=== PATIENT | female | born 1950 | race Caucasian/White ===

== ENCOUNTER 2023-07-11 13:39 | Emergency (ER) | payer MEDICARE, MEDICAID ==
[~2023-07-11] VITALS: Ht 165.1 cm; Wt 71.3 kg
[2023-07-11 14:42] LABS: BILIRUBIN,URINE NEGATIVE (Neg); CLARITY,URINE CLEAR (Clear); GLUCOSE, URINE 500 mg/dl (Neg); KETONES,URINE NEGATIVE (Neg); LEUKOCYTE ESTERASE ,URINE NEGATIVE (Neg); NITRITES, URINE NEGATIVE (Neg); OCCULT BLOOD,URINE NEGATIVE (Neg); PROTEIN,URINE NEGATIVE (Neg); UROBILINOGEN,URINE 0.2 E.U/dL (0.2-1.0)
[2023-07-11 14:45] LABS: COLOR,URINE STRAW (Yellow); UA COLLECTION TYPE CLN CATCH MIDSTREAM
[2023-07-11 15:15] LABS: BASOPHILS % (AUTO) 0.7 % (0-1); EOSINOPHILS # (AUTO) 0.2 X10'3 (0-0.9); EOSINOPHILS % (AUTO) 3.1 % (0-6); HEMATOCRIT 37.1 % (35.0-45.0); HEMOGLOBIN 12.2 g/dl (12.0-16.0); LYMPHOCYTES # (AUTO) 1.5 X10'3 (1.1-4.8); LYMPHOCYTES % (AUTO) 20.2 % (21-51); MEAN CORPUSCULAR HEMOGLOBIN 30.8 PG (27.0-31.0); MEAN CORPUSCULAR VOLUME 93.3 FL (78-98); MEAN PLATELET VOLUME 9.6 FL (7.4-10.4); MONOCYTES # (AUTO) 0.4 X10'3 (0-0.9); MONOCYTES % (AUTO) 5.6 % (2-12); NEUTROPHILS # (AUTO) 5.1 X10'3 (1.8-7.7); NEUTROPHILS % (AUTO) 70.4 % (42-75); PLATELET COUNT 223 X10'3 (140-440); RED BLOOD COUNT 3.98 X10'6 (4.20-5.60); RED CELL DISTRIBUTION WIDTH 13.1 % (11.5-14.5); WHITE BLOOD COUNT 7.3 X10'3 (4.5-11.0)
[2023-07-11 15:32] LABS: ALANINE AMINOTRANSFERASE 23 U/L (12-78); ALBUMIN 3.7 G/DL (3.4-5.0); ALKALINE PHOSPHATASE 70 IU/L (46-116); ANION GAP 9 (8-16); ASPARTATE AMINO TRANSFERASE 19 U/L (10-37); BILIRUBIN,TOTAL 0.6 MG/DL (0.1-1.0); BLOOD UREA NITROGEN 16 MG/DL (7-18); BUN/CREATININE RATIO 15.7 (10.0-20.0); CALCIUM 9.5 MG/DL (8.5-10.1); CHLORIDE 102 MMOL/L (99-107); CREATININE 1.02 MG/DL (0.40-0.90); GLUCOSE 164 MG/DL (70-104); LIPASE 11 U/L (16-77); POTASSIUM 4.3 MMOL/L (3.5-5.1); SODIUM 138 MMOL/L (135-145); TOTAL CARBON DIOXIDE 26.6 MMOL/L (24-32); TOTAL PROTEIN 7.3 G/DL (6.4-8.2); eCRCL 43 ML/MIN; eGFR 53 ML/MIN
[2023-07-11] MEDS ORDERED: METR-159 PO (18:02)
[2023-07-11 18:38] VITALS: BP 150/64; PULSE 93; RESP 16; TEMP 98.4; O2SAT 98
[2023-07-12 09:52] LABS: C DIFF ANTIGEN NEGATIVE (NEGATIVE); C DIFF SPECIMEN=DIARRHEA? ACCEPTABLE; C DIFFICILE TOXINS A&B NEGATIVE (Neg)
== END 2023-07-11 18:41 | disposition home or self-care (01) ==
LOC: ER 13:40
DX: R10.30 Lower abdominal pain, unspecified (principal); R19.7 Diarrhea, unspecified
CPT/HCPCS: 36415; 80053; 81003; 83690; 85025; 87324; 87449; 99283

== ENCOUNTER → 2024-12-17 | Outpatient (CLI) | payer MEDICARE, MEDICAID ==
--- NOTE | 2024-12-21 10:09 | CONSULTATION ---
DATE OF CONSULTATION: 12/17/2024 DICTATING PHYSICIAN: Gabrielle Neal M.S., [facility]-MANAGER [employer] MODIFIED BARIUM SWALLOW STUDY REPORT REFERRING PHYSICIAN: Tisha Hall MD HISTORY OF PRESENT ILLNESS: The patient is a 74-year-old female and consents to this evaluation. In history obtained from the patient and medical records, the patient reports symptoms of dysphagia including feeling as if something stays in her throat and gets caught in her throat when she is eating. She notes that the items that feel caught in her throat include crumbly food items, sunflower seeds, nuts, and some of her medications. This results in coughing and then sometimes vomiting. She thinks that it is affecting her voice. The patient was seen at the [facility] on [facility] for an x-ray. Description appears to be an esophagram with no abnormal results found. The patient notes she has stopped eating sunflower seeds due to the level of difficulty she has been having with them and that she used to have them on a daily basis. The patient has prior history of gastritis and gastroesophageal reflux disease. 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 CURRENT DIET: In terms of caffeine, the patient has recently cut out coffee due to feelings of indigestion and acid reflux. She has about 2-3 cans of Diet Coke a day and sometimes a V8 energy drink. She does not utilize tobacco products. She consumes alcohol 1-2 times weekly in the form of a glass of wine or a artur. She consumes chocolate less than once weekly in candy form but will have chocolate protein drinks. In terms of dairy products, the patient has an Atkins chocolate protein drink on a regular basis. She does not have breakfast. [place] through the day, she will either have an Atkins chocolate protein drink or a V8 energy drink. Dinner is at 7:00 p.m. and may be a salad. She snacks at 9:00 p.m. on chips and albanian fries and goes to bed between 12:00 and 2:00 a.m. MEDICATIONS: Rosuvastatin 20 mg once daily orally, irbesartan 300 mg once daily orally, amlodipine besylate 5 mg once daily orally, aspirin 81 mg once daily orally, vitamin D3 50 mg two tablets once daily orally, sertraline HCL 100 mg once daily orally, pantoprazole sodium EC 40 mg once daily orally, Humalog as needed 30-35 units daily, calm magnesium powder 325 mg, meclizine 25 mg p.r.n., cyclobenzaprine 5 mg once daily orally, Aleve or acetaminophen once daily orally, magnesium glycinate 200 mg once daily orally, Potassirm 99 mg once daily orally, stool softener 100 mg 2 tablets. PARAMETERS: The patient is seated in a lateral 90-degree view and administered the usual protocol of thin and nectar thick liquids, puree and solid consistencies, as well as self-regulated boluses of thin liquids from a cup. RESULTS: In the oral stage of the swallow, oral transit is characterized by reduced lingual palatal stripping secondary to reduced tongue-based retraction. Lingual strength is within functional limits and there is a mild oral residue on the tongue and a mild to moderate residue on the tongue base. In the pharyngeal stage of the swallow, tongue based retraction is mild to moderately reduced. A swallow initiation is within functional limits. Elevation of the hyothyroid complex is accomplished with full range of motion. There is no pharyngeal residue after the initial swallow and PES opening is within functional limits. It is noted that the patient does not have a secondary swallow for the thin liquid consistency to remove the residue from the oral cavity and tongue base. No time is the patient noted to penetrate or aspirate. ANTERIOR, POSTERIOR VIEW: In the AP plane, the bolus splits symmetrically between the pyriform sinuses and there was proximal movement noted to the level of the clavicle. 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 DIAGNOSES: R13.14, dysphagia, paraesophageal phase; K21.9, gastroesophageal reflux disease. PATIENT EDUCATION: Immediately following modified barium swallow study, the patient was able to view the results. She was able to see how the current status of the oral motor and swallowing mechanism decreases her ability to swallow normally. She was educated on a recommendation for speech therapy to strengthen the muscles involved in swallowing and agreed to participate at this time. She was also educated on dietary modifications for laryngopharyngeal reflux disease with written handout provided and with specific education regarding her Atkins chocolate protein drink and energy drink. RECOMMENDATIONS: It is recommended the patient receive swallowing therapy one time weekly for 12 weeks to improve the strength and range of motion of the swallowing musculature to ensure airway safety protection and prevent aspiration. LONG-TERM GOALS: The patient will maintain adequate hydration/nutrition with optimum safety and efficiency of swallow function, p.o. intake without overt signs and symptoms of aspiration for the highest possible diet level. PROGNOSIS: Prognosis for the patient is good in terms of patient motivation and willingness to learn. FUNCTIONAL ORAL INTAKE: The FOIS was administered to establish and document a change in the functional eating activities of this patient over time. This is a 7-point scale with 1 indicating no oral intake and totally tube dependent and 7 indicating total oral intake with no restrictions. This patient received a 6, which indicates she has a total oral diet with multiple consistencies without special preparation but with specific food limitations and precautions. G-CODE: [id number]. Thank you very much for asking me to participate in the care of this kind patient. Should you have any questions regarding this evaluation or recommendations, please do not hesitate to contact me at [phone]. During this examination, 3 minutes 7 seconds of fluoroscopy time and 17.55 CAK mGy were utilized. Gabrielle Neal M.S., [facility]-[employer] TID: [id number] RECEIPT: [id number] NANCY/WENDY/KERVIN BARRETT
== END | disposition home or self-care (01) ==
LOC: RAD 10:56
PROVIDERS: ATTEND Internal Medicine Endocrinology, Diabetes & Metabolism
DX: K21.9 Gastro-esophageal reflux disease without esophagitis (principal); R13.10 Dysphagia, unspecified
CPT/HCPCS: 74230